=== PATIENT | male | born 1995 | race Caucasian/White ===

== ENCOUNTER 2024-04-02 12:30 | Outpatient (RCR) | payer OTHER, SELFPAY ==
--- NOTE | 2024-03-09 10:48 | OTOPEVAL1 ---
Assessment and note entered by Ambrosio Shannon, JB/Kristal, CHT Evaluation Information Assessment Status Evaluation Diagnosis Left wrist pain Subjective Information Patient is right hand dominant. He reports experiencing pain in the left wrist about a month ago. 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 He also spends a lot of time on a computer at work and at home as well. He experiences pain and numbness in the left wrist, occasionally goes up the forearm, and into the hand, particularly the thumb and index finger. Reported Pain Level Pain Score 0: Self Report Additional Pain Score Comments Patient reports his symptoms have slowly subsided, so in the last week he hasn't been feeling much pain. He reports at worst it got up to 1/10. Mostly reporting tightness and discomfort with ROM and nerve glides today. Assessment OT Clinical Summary Patient referred to OT with left wrist pain. Signs and symptoms are consistent with median nerve compression/irritation. 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 Continued skilled OT indicated for HEP progression, gross UE strengthening, manual therapy, and therapeutic activities to facilitate improved functional strength, reduced pain, and return to functional use. Plan of Care Interventions Therapeutic Exercise,Manual Therapy,Therapeutic Activities,Check Out for Orthotic/Pr,Paraffin OT Services Indicated Yes Treatment Frequency and 1x/week for 4 visits Duration These treatments will address the objective and functional deficits as defined above. The patient will be advanced safely and appropriately in order for the patient to progress towards his/her prior level of function. Additional exercises will be introduced and as well as a comprehensive home exercise program upon discharge, if needed, ?to ensure carryover of functional gains achieved in the clinic. This treatment plan has been reviewed and agreement upon by the patient.
--- NOTE | 2024-03-09 10:48 | OPREHPOC ---
Outpatient Therapy Plan of Care This is a Multidisciplinary Plan of Care that may contain components documented by all disciplines (PT, OT, and ST.) OT Problem 1 OT Problem #1 Knowledge Deficit OT Goal 1 Goal 1. Patient to be independent with instructed materials. Target Visit 4 OT Problem 2 OT Problem #2 Pain OT Goal 1 Goal 1. Patient to report 0/10 pain in left wrist/UE during ADLs. Target Visit 4 OT Problem 3 OT Problem #3 Impaired Flexibility OT Goal 1 Goal 1. Patient to be able to complete median nerve glides without reports of discomfort or tension. Target Visit 4 OT Problem 4 OT Problem #4 Impaired Strength OT Goal 1 Goal 1. 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 2. Patient to be independent with gross UE strengthening home program, including shoulder, elbow, and wrist. Target Visit 4
--- NOTE | 2024-04-02 13:23 | OTOPDC ---
Assessment and note entered by Ambrosio Shannon, JB/Kristal, CHT Evaluation Information Diagnosis Left wrist pain Subjective Information Patient reporting overall improvement in his symptoms. He reports overall experiencing less tingling. No longer experiencing pain radiating up the forearm. He reports at the start of care he was experiencing constant pain in the thumb, index , and middle fingers. Now, he reports only experiencing some tingling in the middle finger tip. He continues to only have intermittent tingling in the right. He has started going to the gym and working out. Assessment OT Clinical Summary Patient referred to OT with left wrist pain consistent with carpal tunnel syndrome. He has made great progress since the start of care. He initially was experiencing paresthesia in the first 4 digits and today he only has mild tingling in the left middle finger tip. 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 He has been compliant with strengthening, stretching, and nerve glide HEP. Discussed at length workstation ergonomics. He is going to continue night splints for another month. At this time patient to continue to comply with HEP for another 4 weeks, completing this independently. Rehab potential is excellent for his symptoms to resolve in this time frame. Patient understands that if he needs to come back for more therapy he will need a new MD order. D/C OT with patient independent with all materials. Plan of Care OT Services Indicated No
== END 2024-04-02 14:20 | disposition home or self-care (01) ==
LOC: ANHOT 12:30
PROVIDERS: PCP Physician Assistant; Visit Provider Physician Assistant
DX: M25.532 Pain in left wrist (principal)
CPT/HCPCS: 97018; 97110; 97165

== ENCOUNTER 2025-04-22 11:51 | Outpatient (CLI) | payer OTHER, SELFPAY ==
--- NOTE | ~2025-04-22 | US_ITS ---
US abdomen complete EXAMINATION: US Abdomen Complete INDICATION: Right lower quadrant pain PROCEDURE: Realtime High Resolution abdomen ultrasound. COMPARISON: No prior studies for comparison FINDINGS: Gallbladder within normal limits. No gallstones, pericholecystic fluid, gallbladder wall thickening or biliary dilatation. Common bile duct measures 3 mm. Liver echotexture is increased, consistent with fatty infiltration.. Pancreas within normal limits. Pancreatic tail is obscured by bowel gas. Spleen is unremarkeable. Right renal echotexture is normal. No hydronephrosis. There is a 6 mm echogenic focus in the left kidney, suspicious for renal stone. No hydronephrosis. Right kidney measures 12.5 cm. Left kidney measures 11.2 cm. Visualized aspects of the aorta and IVC are within normal limits. Portal vein is patent. No sonographic Coleman's sign indicated by the technologist. IMPRESSION: 1: Fatty infiltration of the liver. 2: Echogenic focus of the left kidney measuring 6 mm, consistent with renal stone. No hydronephrosis. Reviewed, dictated and finalized at location O. IMPRESSION: 1: Fatty infiltration of the liver. 2: Echogenic focus of the left kidney measuring 6 mm, consistent with renal sto ne. No hydronephrosis.
--- OUTSIDE RECORDS SUMMARY | 2025-04-22 11:54 | XMS_ITS | Clinical Summary ---
Author Organization [facility] Address [address] [place] [id number] Care Team Providers Care Medical Biller Name Role Phone None, Provider MD Primary Care Provider Unavaila ble Allergies No known active allergies Social History Tobacco Use Types Packs/Day Years Used Date Smoking Tobacco: Never Assessed Sex and Gender Information Value Date Recorded Sex Assigned at Not on file Legal Sex Male 7:22 PM CDT Gender Identity Not on file Sexual Orientation Not on file Last Filed Vital Signs Vital Sign Reading Time Taken Comments Blood Pressure 123/74 06/24/2023 11:[address] [facility] Pulse 93 06/24/2023 11:[address] [facility] Temperature 36 C (96.8 F) 06/24/2023 10:[address] [facility] Respiratory Rate 20 06/24/2023 11:[address] [facility] Oxygen Saturation 98% 06/24/2023 11:[address] [facility] Inhaled Oxygen Concentration - - Weight 107 kg (235 lb 14.3 oz) 06/24/2023 10:[address] [facility] Height 180.3 cm (5' 11) 06/24/2023 10:[address] [facility] Body Mass Index 32.9 06/24/2023 10:[address] [facility] Plan of Treatment Health Maintenance Due Date Last Done Comments Hepatitis B Vaccines (3 of 3 - 3-dose series) 04/13/1998 02/16/1998, 1997 Annual Physical 2000 Hepatitis C 2015 DTaP, Tdap and Td Vaccines (7 - Td or Tdap) 01/30/2019 01/30/2009, 06/09/2002, 07/13/1998, Additional history exists HPV Vaccines (1 - 3-dose SCDM series) 2024 COVID-19 Vaccine ( season) 2025 06/12/2023, 06/18/2022, 08/19/2021, Additional history exists Meningococcal Vaccine Completed 01/17/2015, 009 Meningococcal B Vaccine Aged Out No l onger eligible based on patient's age to complete this topic Pneumococcal Vaccine: Pediatrics (0 to 5 Years) and At-Risk Patients (6 to 49 Years) Aged Out No longer eligible based on patient's age to complete this topic RSV Immunizations Under 20 Months Aged Out No longer eligible based on patient's age to complete this topic Insurance Care Teams Medical Biller Relationship Specialty Start Date End Date None, Provider, PCP - General UNKNOWN PHYSICIAN SPECIALTY 06/24/23
== END 2025-04-22 11:52 | disposition home or self-care (01) ==
PROVIDERS: PCP Physician Assistant; Visit Provider Physician Assistant
DX: K76.0 Fatty (change of) liver, not elsewhere classified (principal)
CPT/HCPCS: 76700